=== PATIENT | male | born 1960 | race Caucasian/White ===

== ENCOUNTER 2020-07-01 13:16 | Outpatient (REF) | payer OTHER, SELFPAY ==
[2020-07-01 14:32] LABS: Estimated Average Glucose 128 mg/dL; Hemoglobin A1c % 6.1 %
[2020-07-01 14:37] LABS: Alanine Aminotransferase 66 U/L (0-40); Albumin Level 4.9 g/dL (3.5-5.0); Alkaline Phosphatase 46 U/L (39-117); Anion Gap 14 (12-20); Aspartate Amino Transferase 37 U/L (5-37); Bilirubin Total 0.9 mg/dL (0.0-1.0); Blood Urea Nitrogen 22 mg/dL (9-16); Calcium 9.5 mg/dL (8.4-10.2); Carbon Dioxide 26 mmol/L (22-29); Chloride 101 mmol/L (96-108); Cholesterol 227 mg/dL; Estimated Glomerular Filt Rate > 60; Glucose Fasting 85 mg/dL (60-99); HDL Cholesterol 41 mg/dL; LDL Cholesterol Calculated 161 mg/dl; Potassium 4.1 mmol/l (3.3-5.1); Sodium 137 mmol/L (135-145); Total Protein 7.7 g/dL (6.5-8.0); Triglycerides 129 mg/dL
[2020-07-01 17:22] LABS: Creatinine Urine 193.77 mg/dL; Microalbum/Creatinine Ratio Ur 2.5 ug/mg cr
[2020-07-04 08:55] LABS: HBS Num1 0.83 mIU/mL (0-7.99); HBc Num1 0.09 S/CO (0.00-0.79); HBsAGNum1 0.15 S/CO (0.00-0.99); Hepatitis B Core Antibody Nonreactive (Nonreactive); Hepatitis B Surface Antigen Negative (Negative); ~Hepatitis B Surface Antibody NONREACTIVE (Nonreactive)
[2020-07-04 09:44] LABS: ~HepC Num1 0.06 S/CO (0.00-0.79); ~Hepatitis C Antibody Nonreactive (Nonreactive)
== END 2020-07-01 13:17 | disposition home or self-care (01) ==
LOC: HO.HMGCLDS 13:16
PROVIDERS: PCP Internal Medicine; Visit Provider Internal Medicine
DX: E11.65 Type 2 diabetes mellitus with hyperglycemia (principal); R74.8 Abnormal levels of other serum enzymes; I10 Essential (primary) hypertension
CPT/HCPCS: 80053; 80061; 82043; 83036; 86704; 86706; 86803; 87340

== ENCOUNTER 2023-05-23 14:18 | Outpatient (AMB) | payer OTHER, SELFPAY ==
--- NOTE | 2023-05-23 14:54 | AM.OFFWIN_ITS ---
Intake Vital Signs 05/23/23 14:55 Weight 196 lb BP 120/80 Blood Pressure Location Lt brachial Position Sitting Pulse 83 Pulse Source Pulse Oximeter Pulse Oximetry (%) 94 Oxygen Delivery Method Room Air Intake Visit Reasons: EP Lip Sore Intake Note: Patient here for lip sore which has been present for about 2-3 months. started off as what looked like a cold sore but progressively worsened. Patient Tobacco Use Status: Never used Tobacco Allergies No Known Allergies Allergy (Verified 05/23/23 14:56) Do you need a note to return to daycare/school/sports/work: No HPI HPI Comments History of Present Illness Details 63-year-old male presents with an abnormal growth to the lip x3 months. Patient thought initially it was an ingrown hair or a pimple tried to pop it and pull it is only grown larger in size is mildly tender and uncomfortable. [facility] Medical History Dyslipidemia Facial skin lesion HTN (hypertension) Liver enzyme elevation Type 2 diabetes mellitus without complication, without long-term current use of insulin Surgical History Hand fracture, right History of hernia repair Social History Alcohol intake: current Patient Tobacco Use Status: Never used Tobacco Review of Systems Const All systems reviewed & are unremarkable except as noted in HPI and below ENT Details: Growth on the lip Physical Exam Vital Signs: Last Vital Signs Pulse 83 05/23/23 14:55 BP 120/80 05/23/23 14:55 Pulse Ox 94 05/23/23 14:55 Oxygen Delivery Method Room Air 05/23/23 14:55 Const General: comfortable and alert HEENT Other: abnormal growth on the bottom lip resembling a wart. crosses the vermil[place] border Assessment & Plan Assessment & Plan (1) Wart of face: Code(s): B07.9 - Viral wart, unspecified Plan lip growth resembles filiforms wart versus other cancers lesion. Recommend patient see dermatology [facility] surgeon for biopsy. Will send message to primary care. Discharge instructions, follow up and treatment are discussed with patient in my usual fashion. Alternatives in treatment are also discussed. The patient will return for worsening symptoms or as needed. Advised that any labs/imaging ordered will be followed up on and contact made if further treatment needed. Counseled that patient's condition may require further evaluation and/or treatment. Symptoms of concern for worsening disorder discussed in detail in my customary manner. Patient does verbalize understanding of the plan, there are no apparent barriers to communication. The patient is given the opportunity to ask questions and have them answered to his/her satisfaction Coding Level of Care Code Est Pt Level 2 (01862) Diagnoses Wart of face B07.9
[2023-05-23 14:55] VITALS: BP 120/80; PULSE 83; O2SAT 94
== END 2023-05-23 15:28 | disposition home or self-care (01) ==
PROVIDERS: PCP Internal Medicine; Visit Provider Physician Assistant
DX: B07.9 Viral wart, unspecified (principal)
CPT/HCPCS: 99212